=== PATIENT | female | born 1995 | race Caucasian/White ===

== ENCOUNTER 2021-02-25 20:40 | Emergency (ER) | payer BC ==
[2021-02-25 21:14] LABS: HEMOGLOBIN 14.8 gm/dl (12.3-15.3); RED BLOOD COUNT 5.06 M/UL (4.00-5.10); WHITE BLOOD COUNT 8.5 K/UL (4.5-11.0)
[2021-02-25 21:38] LABS: BUN/CREATININE RATIO 18 (0-10)
[2021-02-26] MEDS ORDERED: HYDROCODON-ACE1 EAC4 PO ×2 (00:06→01:21)
[2021-02-26] MEDS ORDERED: LODINE CAP 300300 MG PO (01:17)
[2021-02-26] MEDS ORDERED: ZOFRAN ODT 4 MG4 MG PO (01:17)
== END 2021-02-26 01:40 | disposition home or self-care (01) ==
LOC: ER1 20:40
PROVIDERS: Physician Assistant
DX: S42.021A Displaced fracture of shaft of right clavicle, initial encounter for closed fracture (principal); S32.591A Other specified fracture of right pubis, initial encounter for closed fracture; V86.99XA Unspecified occupant of other special all-terrain or other off-road motor vehicle injured in nontraffic accident, initial encounter
CPT/HCPCS: 70450; 71045; 72125; 73030; 73502; 80053; 80307; 81001; 83735; 84703; 85025; 87086; 96374; 96375; 96376; 99284; G0480; J2270; J2405; Q9967